=== PATIENT | male | born 1950 | race African-American/Black ===

== ENCOUNTER → 2016-08-07 | Outpatient (CLI) | payer MEDICARE | LOC: RAD 09:18 | PROVIDERS: ATTEND Family Medicine | DX: R91.1 Solitary pulmonary nodule (principal) | CPT/HCPCS: 71260 ==

== ENCOUNTER → 2016-09-15 | Outpatient (CLI) | payer MEDICARE | LOC: RAD 16:40 | PROVIDERS: ATTEND Nurse Practitioner Adult Health | DX: R91.1 Solitary pulmonary nodule (principal) | CPT/HCPCS: 78814; A9552 ==

== ENCOUNTER → 2016-10-02 | Day surgery (SDC) | payer MEDICARE | LOC: RAD 12:18 | PROVIDERS: ATTEND Family Medicine | PROC: 07B63ZX Excision of Left Axillary Lymphatic, Percutaneous Approach, Diagnostic (ICD-10-PCS; principal; 2016-10-02) | DX: R93.8 Abnormal findings on diagnostic imaging of other specified body structures (principal); R59.0 Localized enlarged lymph nodes | CPT/HCPCS: 38505; 76942; 88305 ==

== ENCOUNTER → 2017-01-30 | Outpatient (CLI) | payer MEDICARE ==
--- NOTE | 2017-01-30 11:43 | RADIOLOGY REPORT (SQ) ---
EXAM DESCRIPTION: U/S EXTREMITY NONVASCULAR LTD COMPLETED DATE/TIME: 01/30/2017 9:30 am REASON FOR STUDY: LOCALIZED ENLARGED LYMPH NODES <LEFT AXILLARY> (R59.0) R59.0 LOCALIZED ENLARGED L YMPH NODES COMPARISON: Ultrasound-guided axillary lymph node biopsy 10/02/2016 PET-CT 09/15/2016 CT chest 08/07/2016 TECHNIQUE: Ultrasound of the left axilla was performed LIMITATIONS: None. FINDINGS: In the left axilla, a previously biopsied lymph node is present with biopsy clip artifact. This lymph node is similar compared to biopsy imaging from 10/02/2016, 2.5 cm x 1.4 cm x 0.8 cm in si ze. IMPRESSION: Stable left axillary lymph node, previously biopsied TECHNICAL DOCUMENTATION: JOB ID: [id number] [employer]- All Rights Reserved
== END ==
LOC: RAD 08:38
PROVIDERS: ATTEND Surgery
DX: R59.0 Localized enlarged lymph nodes (principal)
CPT/HCPCS: 76882

== ENCOUNTER → 2017-08-04 | Outpatient (CLI) | payer MEDICARE ==
--- NOTE | 2017-08-04 10:04 | RADIOLOGY REPORT (SQ) ---
EXAM DESCRIPTION: U/S EXTREMITY NONVASCULAR LTD COMPLETED DATE/TIME: 08/04/2017 9:33 am REASON FOR STUDY: ENLARGED LYMPH NODES R59.0 LOCALIZED ENLARGED LYMPH NODES COMPARISON: 01/30/2017 TECHNIQUE: Dynamic and static grayscale images acquired of the localized site of clinical concern an d recorded on PACS. Additional selected color Doppler and spectral images recorded. SITE OF CONCERN: Left axilla LIMITATIONS: None. FINDINGS: SKIN AND SUBCUTANEOUS TISSUES: Previously biopsied lymph node is again noted. Stable to s lightly smaller in size. Now measures 1.6 x 1.2 x 1 cm. DEEP SOFT TISSUES/MUSCLES: No masses. No fluid collections. No edema. VASCULAR: No increased or decreased vascularity. No occlusions. OTHER: No other significant finding. IMPRESSION: Stable biopsied lymph node left axilla. TECHNICAL DOCUMENTATION: JOB ID: [id number] [employer]- All Rights Reserved
== END ==
LOC: RAD 08:52
PROVIDERS: ATTEND Surgery
DX: R59.0 Localized enlarged lymph nodes (principal)
CPT/HCPCS: 76882

== ENCOUNTER → 2017-09-22 | Outpatient (CLI) | payer MEDICARE ==
--- NOTE | 2017-09-22 16:53 | RADIOLOGY REPORT (SQ) ---
EXAM DESCRIPTION: KNEE LEFT 2 VIEWS COMPLETED DATE/TIME: 09/22/2017 11:14 am REASON FOR STUDY: PAIN IN LEFT KNEE M25.562 PAIN IN LEFT KNEE COMPARISON: Left knee plain films 09/28/2007 Left knee MRI 10/10/2010 NUMBER OF VIEWS: Two views. TECHNIQUE: AP and lateral radiographic images acquired of the left knee. LIMITATIONS: None. FINDINGS: MINERALIZATION: Normal. BONES: Total knee replacement with patellar resurfacing. Subtle lucency along the medial tibial plat eau between the bone and prosthesis, question loosening. No [place] river bony fracture JOINT: No effusion. SOFT TISSUES: No soft tissue swelling. No radio-opaque foreign body. OTHER: Left total knee replacement with patellar resurfacing IMPRESSION: Subtle lucency between the medial tibial plateau and prosthesis, question loosening of t he prosthesis. TECHNICAL DOCUMENTATION: JOB ID: [id number] [employer]- All Rights Reserved Reading location - IP/workstation name: [email or web address]
== END ==
LOC: OD 11:02
PROVIDERS: ATTEND Physician Assistant
DX: M25.562 Pain in left knee (principal); Z96.652 Presence of left artificial knee joint

== ENCOUNTER → 2018-04-03 | Outpatient (CLI) | payer MEDICARE ==
--- NOTE | 2018-04-03 12:43 | RADIOLOGY REPORT (SQ) ---
EXAM DESCRIPTION: HAND LEFT 3 VIEWS COMPLETED DATE/TIME: 04/03/2018 12:25 pm REASON FOR STUDY: OTHER SPECIFIED SOFT TISSUE DISORDERS M79.89 OTHER SPECIFIED SOFT TISSUE DISORDER S COMPARISON: 01/30/2016. EXAM PARAMETERS: NUMBER OF VIEWS: Three views. TECHNIQUE: AP, lateral and oblique radiographic images acquired of the left hand. LIMITATIONS: None. FINDINGS: MINERALIZATION: Normal. BONES: No acute fracture or dislocation. No worrisome bone lesions. JOINTS: No effusions. SOFT TISSUES: No soft tissue swelling. Punctate radiopaque density in the soft tissues adjacent to t he 2nd and 3rd metacarpal. OTHER: No other significant finding. IMPRESSION: PUNCTATE RADIOPAQUE DENSITY IN THE SOFT TISSUES ADJACENT TO THE 2ND AND 3RD METACARPAL. THIS MAY BE A TINY FOREIGN BODY OR FOCAL CALCIFICATION. NO CHANGE FROM THE PRIOR STUDY. NO OTHER S IGNIFICANT FINDINGS. TECHNICAL DOCUMENTATION: JOB ID: [id number] [employer]- All Rights Reserved Reading location - IP/workstation name: [email or web address]
--- NOTE | 2018-04-03 12:44 | RADIOLOGY REPORT (SQ) ---
EXAM DESCRIPTION: WRIST LEFT 3 VIEWS COMPLETED DATE/TIME: 04/03/2018 12:26 pm REASON FOR STUDY: OTHER SPECIFIED SOFT TISSUE DISORDERS M79.89 OTHER SPECIFIED SOFT TISSUE DISORDER S COMPARISON: 01/30/2016. NUMBER OF VIEWS: Three views. TECHNIQUE: AP, lateral, and oblique radiographic images acquired of the left wrist. LIMITATIONS: None. FINDINGS: MINERALIZATION: Normal. BONES: No acute fracture or dislocation. Marked joint space narrowing in the radiocarpal space with marked sclerosis and osteophytes. Small osseous densities adjacent to the ulnar styloid. No worriso me bone lesions. Normal alignment. SOFT TISSUES: No soft tissue swelling. No foreign body. OTHER: No other significant finding. IMPRESSION: CHRONIC DEGENERATIVE CHANGES IN THE RADIOCARPAL SPACE. NO ACUTE FINDINGS. TECHNICAL DOCUMENTATION: JOB ID: [id number] [employer]- All Rights Reserved Reading location - IP/workstation name: [email or web address]
== END ==
LOC: OD 11:33
PROVIDERS: ATTEND Family Medicine
DX: M79.89 Other specified soft tissue disorders (principal)

== ENCOUNTER → 2018-05-18 | Outpatient (CLI) | payer MEDICARE ==
--- NOTE | 2018-05-18 13:08 | RADIOLOGY REPORT (SQ) ---
EXAM DESCRIPTION: U/S RETROPERITON (RENAL/AORTA) COMPLETED DATE/TIME: 05/18/2018 10:45 am REASON FOR STUDY: ABN KIDNEY FUNCTION (R94.4) R94.4 ABNORMAL RESULTS OF KIDNEY FUNCTION STUDIES COMPARISON: None. TECHNIQUE: Dynamic and static grayscale images acquired of the kidneys and bladder and recorded on P ACS. Additional selected color Doppler and spectral images recorded. LIMITATIONS: None. FINDINGS: RIGHT KIDNEY: Normal size. Normal echogenicity. No solid or suspicious masses. No hydronep hrosis. No calcifications. LEFT KIDNEY: Normal size. Normal echogenicity. 3.5 cm cortical cyst. No solid or suspicious masses . No hydronephrosis. No calcifications. BLADDER: No masses. OTHER FINDINGS: No other significant finding. IMPRESSION: CORTICAL CYST IN THE LEFT KIDNEY. OTHERWISE UNREMARKABLE RENAL AND BLADDER ULTRASOUND. NO HYDRONEPHROSIS. TECHNICAL DOCUMENTATION: JOB ID: [id number]- All Rights Reserved Reading location - IP/workstation name: [email or web address]
== END ==
LOC: RAD 09:39
PROVIDERS: ATTEND Family Medicine
DX: R94.4 Abnormal results of kidney function studies (principal)
CPT/HCPCS: 76770

== ENCOUNTER 2018-10-27 19:53 | Emergency (ER) | payer MEDICARE ==
[2018-10-27] MEDS ORDERED: OXYCODONE-ACETAMINOPHEN 5-325 MG TABLET PO ONE (20:11)
[2018-10-27] MEDS ORDERED: METHOCARBAMOL 500 MG TABLET PO ONE (20:12)
[2018-10-27] MEDS ORDERED: KETOROLAC TROMETHAMINE INJ/PF 30 MG/1 ML SDV IM ONE (20:12)
--- NOTE | 2018-10-27 20:12 | ER Document Report ---
ED Neck/Back Problem - General Chief Complaint: Stiff Neck Stated Complaint: NECK PAIN Time Seen by Provider: 10/27/18 20:11 Primary Care Provider: DANA PLUNKETT MD [Primary Care Provider] - Follow up tomorrow Mode of Arrival: Ambulatory Information source: Patient Notes: 68-year-old male presented to ED for complaint of stiff neck on the right side. He states he has had multiple times in the past and the doctor usually gives him some muscle relaxers and it is relieved. He states it is been a while before he since he has had it last but his states his only been a couple months ago. Patient is alert oriented respirations regular and unlabored speaking in full sentences walks with a even steady gait. He states he does not have a left lung it was removed due to an infection. He also has a left knee replacement high blood pressure high cholesterol. TRAVEL OUTSIDE OF THE [place] IN LAST 30 DAYS: No - HPI Patient complains to provider of: Pain, Neck Onset: Yesterday Onset: Chronic Timing: Still present Quality of pain: Sharp Pain Level: 5 Recent injury: No Associated symptoms: Like prior neck/back pain Exacerbated by: Movement of neck - Muscle spasm Relieved by: Nothing Similar symptoms previously: Yes Recently seen / treated by doctor: Yes - Related Data Allergies/Adverse Reactions: No Known Allergies Allergy (Verified 10/27/18 19:54) Past Medical History - General Information source: Patient - Social History Smoking Status: Former Smoker Frequency of alcohol use: None Drug Abuse: None Lives with: Family Family History: Reviewed & Not Pertinent Patient has suicidal ideation: No Patient has homicidal ideation: No - Past Medical History Cardiac Medical History: Reports: Hx Hypercholesterolemia, Hx Hypertension Pulmonary Medical History: Reports: Hx Asthma, Hx COPD, Hx Pneumonia EENT Medical History: Reports: None Neurological Medical History: Reports: None Endocrine Medical History: Reports: None Renal/ Medical History: Reports: None Malignancy Medical History: Reports None GI Medical History: Reports: None Musculoskeletal Medical History: Reports Hx Arthritis - Osteoarthritis, Reports Hx Musculoskeletal Deformity Skin Medical History: Reports None Psychiatric Medical History: Reports: None Traumatic Medical History: Reports: Hx Fractures - Wrist Infectious Medical History: Reports: None Past Surgical History: Reports: Hx Orthopedic Surgery - Left Knee Replacement, Other - Uvula Resection - Snoring. Left Upper lobectomy - 2 Fungal Infection - Immunizations Immunizations up to date: No Hx Diphtheria, Pertussis, Tetanus Vaccination: No Hx Pneumococcal Vaccination: 05/28/15 Review of Systems - Review of Systems Constitutional: No symptoms reported EENT: No symptoms reported Cardiovascular: No symptoms reported Respiratory: No symptoms reported Gastrointestinal: No symptoms reported Genitourinary: No symptoms reported Male Genitourinary: No symptoms reported Musculoskeletal: Muscle pain, Muscle stiffness, Neck pain Skin: No symptoms reported Hematologic/Lymphatic: No symptoms reported Neurological/Psychological: No symptoms reported -: Yes All other systems reviewed and negative Physical Exam - Vital signs Vitals: Temp Pulse Resp BP Pulse Ox 98.0 F 86 16 158/84 H 100 10/27/18 20:04 10/27/18 20:04 10/27/18 20:04 10/27/18 20:04 10/27/18 20:04 Interpretation: Normal - General General appearance: Appears well, Alert - HEENT Head: Normocephalic, Atraumatic Eyes: Normal Pupils: PERRL - Respiratory Respiratory status: No respiratory distress Chest status: Nontender Breath sounds: Normal Chest palpation: Normal - Cardiovascular Rhythm: Regular Heart sounds: Normal auscultation Murmur: No - Abdominal Inspection: Normal Distension: No distension Bowel sounds: Normal Tenderness: Nontender Organomegaly: No organomegaly - Back Back: Normal, Tender - Right neck muscle presents - Extremities General upper extremity: Normal inspection, Nontender, Normal color, Normal ROM, Normal temperature General lower extremity: Normal inspection, Nontender, Normal color, Normal ROM, Normal temperature, Normal weight bearing. No: Shereen's sign - Neurological Neuro grossly intact: Yes Cognition: Normal Orientation: AAOx4 Debi Coma Scale Eye Opening: Spontaneous Norris Coma Scale Verbal: Oriented Debi Coma Scale Motor: Obeys Commands Debi Coma Scale Total: 15 Speech: Normal Motor strength normal: LUE, RUE, LLE, RLE Sensory: Normal - Psychological Associated symptoms: Normal affect, Normal mood - Skin Skin Temperature: Warm Skin Moisture: Dry Skin Color: Normal Course - Re-evaluation Re-evalutation: 10/27/18 22:02 Patient received relief from his torticollis was able to move his neck freely. Patient was discharged home with prescription for Robaxin and instructed to follow-up with orthopedics or his primary care doctor tomorrow. Patient was given instructions on ice and warm packs. Patient and verbalized understanding and agreement with treatment plan and patient was discharged home. - Vital Signs Vital signs: Temp Pulse Resp BP Pulse Ox 98.0 F 81 16 149/82 H 97 10/27/18 20:04 10/27/18 21:03 10/27/18 21:03 10/27/18 21:03 10/27/18 21:03 Discharge - Discharge Clinical Impression: Right torticollis Condition: Stable Disposition: HOME, SELF-CARE Additional Instructions: Torticollis You have torticollis, often called "wry neck." This is due to spasm of neck muscles -- locking the neck into a crooked position. Many different problems can lead to torticollis, such as a minor injury, sleeping with tension on the neck, or inflammation in the glands of the neck. Torticollis is usually treated with heat to relax the neck muscles, but the physician may recommend cold packs if a minor injury is suspected as the cause. Muscle relaxing and antiinflammatory medicine are often prescribed. You may need a neck collar to support your head. Improvement is usually rapid. Usually, the neck can be moved fully within two days, although some pain may persist for a few weeks. Call the doctor at once if you worsen, or if you develop high fever, severe headache, numbness or weakness, or other alarming symptoms. USE OF TYLENOL (ACETAMINOPHEN): Acetaminophen may be taken for pain relief or fever control. It's much safer than aspirin, offering a wider range of "safe" dosages. It is safe during . Some brand names are Tylenol, Panadol, Datril, Anacin 3, Tempra, and Liquiprin. Acetaminophen can be repeated every four hours. The following are maximum recommended dosages: WEIGHT Dose Drops Elixir Chew able(80mg) (LBS.) drprs=droppers tsp=teaspoon 6 40 mg 0.4 ml (1/2) 6-11 80 mg 0.8 ml (full) tsp 1 tab 12-16 120 mg 1 1/2 drprs 3/4 tsp 1 1/2 tabs 17-23 160 mg 2 drprs 1 tsp 2 tabs 24-30 240 mg 3 drprs 1 1/2 tsp 3 tabs 30-35 320 mg 2 tsp 4 tabs 36-41 360 mg 2 1/4 tsp 4 1/2 tabs 42-47 400 mg 2 1/2 tsp 5 tabs 48-53 480 mg 3 tsp 6 tabs 54-59 520 mg 3 1/4 tsp 6 1/2 tabs 60-64 560 mg 3 1/2 tsp 7 tabs 65-70 600 mg 3 3/4 tsp 7 1/2 tabs 71-76 640 mg 4 tsp 8 tabs 77-82 720 mg 4 1/2 tsp 9 tabs 83-88 800 mg 5 tsp 10 tabs >89 pounds or adults 650 mg to 900 mg Acetaminophen can be repeated every four hours. Maximum dose not to exceed 4000 mg a day. These maximum recommended dosages are slightly higher than the dosages written on the product container, but these dosages are very safe and below the toxic dosage for acetaminophen. ICE PACKS: Apply ice packs frequently against the painful area. Many different schedules are recommended, such as "20 minutes on, 20 minutes off" or "one hour ice, two hours rest." If you need to work, you may need to go longer between ice treatments. You should plan to have the area ice packed AT LEAST one fourth of the time. The ice should be applied over the wrap, tape, or splint, or over a layer of cloth -- not directly against the skin. Some ice bags have a built-in cloth and can be put directly on the skin. WARM PACKS: After approximately two days, apply gentle heat (such as a heating pad or hot water bottle) for about 20 to 30 minutes about every two hours -- at least four times daily. Warmth and elevation will help you make a more rapid recovery, and will ease the pain considerably. Do not use HOT heat, and never apply heat for longer than 30 minutes. The continuous heat can invisibly damage skin and muscles -- even when no burn is seen on the surface. Damaged muscles can make you MORE sore. MUSCLE RELAXERS: Muscle relaxing medications are usually prescribed for acute muscle spasm or injury to the neck and back. They are often combined with antiinflammatory pain medication for increased relief. You may stop the muscle relaxer when the pain and stiffness have improved. Start the medication again if spasms recur. Muscle relaxers may cause drowsiness, especially with the first dose. Do not operate machinery or drive while under the effects of the medication. Most muscle relaxers last up to 24 hours. Do not combine the medication with alcohol. ORAL NARCOTIC MEDICATION: You have been given a percocet for pain control. This medication is a narcotic. It's best taken with food, as nausea can result if taken on an empty stomach. Don't operate machinery or drive within six hours of taking this medication. Do not combine this medicine with alcohol, or with any medication which can cause sedation (such as cold tablets or sleeping pills) unless you get permission from the physician. Narcotics tend to cause constipation. If possible, drink plenty of fluids and eat a diet high in fiber and fruits. Toradol Injection You have been given an injection of ketorolac tromethamine (Toradol). This is an excellent, safe drug for pain control. It also has potent antiinflammatory action. You should have significant pain relief within about one hour. Toradol is not addicting and is non-sedating. It does not interfere with driving or work. Call or return if you develop itching, hives, shortness of breath, or rash. FOLLOW-UP CARE: If you have been referred to a physician for follow-up care, call the physicians office for an appointment as you were instructed or within the next two days. If you experience worsening or a significant change in your symptoms, notify the physician immediately or return to the Emergency Department at any time for re-evaluation. Prescriptions: Methocarbamol [Robaxin 500 mg Tablet] 500 mg PO BID #10 tablet Forms: Elevated Blood Pressure Referrals: DANA PLUNKETT MD [Primary Care Provider] - Follow up tomorrow
[2018-10-27 21:04] VITALS: BP 149/82
== END 2018-10-27 21:04 | disposition home or self-care (01) ==
LOC: ER 19:53
DX: M43.6 Torticollis (principal); E78.00 Pure hypercholesterolemia, unspecified; I10 Essential (primary) hypertension; J44.9 Chronic obstructive pulmonary disease, unspecified; Z96.652 Presence of left artificial knee joint
CPT/HCPCS: 99283; 96372; A9270 ×2; J1885

== ENCOUNTER → 2018-10-29 | Outpatient (CLI) | payer MEDICARE ==
--- NOTE | 2018-10-29 13:25 | RADIOLOGY REPORT (SQ) ---
EXAM DESCRIPTION: C SP 4 OR 5 VIEWS COMPLETED DATE/TIME: 10/29/2018 11:08 am REASON FOR STUDY: CERVICALGIA M54.2 CERVICALGIA COMPARISON: None. NUMBER OF VIEWS: Five views. TECHNIQUE: AP, lateral, obliques and odontoid radiographic images acquired of the cervical spine. LIMITATIONS: None. FINDINGS: MINERALIZATION: Normal. ALIGNMENT: Loss of the normal lordotic curvature likely secondary to muscle spasm. Anatomic. VERTEBRAE: Vertebral bodies of normal height. DISCS: Multilevel moderate to moderate severe disc disease from C3-4 through C7-T1 with mild adjacen t endplate sclerosis. Mildly prominent anterior osteophytes. FORAMINA: Multilevel mild to moderate foraminal narrowing. Small posterior osteophytes encroach on the foramina on the left at C5-C6 and C6-C7. On the right at C5-C6. LATERAL AND POSTERIOR ELEMENTS: Multilevel mild to moderate facet arthrosis. The lateral masses and spinous processes without significant findings. HARDWARE: None in the spine. SOFT TISSUES: No masses or calcifications. Lung apices clear. OTHER: No other significant finding. IMPRESSION: 1. Degenerative cervical spondylosis and multilevel moderate severe degenerative disc d isease. 2. Multilevel bilateral foraminal narrowing. 3. Loss of the normal lordotic curvature likely secondary to muscle spasm. 4. No acute osseous findings. TECHNICAL DOCUMENTATION: JOB ID: [id number]- All Rights Reserved Reading location - IP/workstation name: [email or web address]
== END ==
LOC: OD 10:41
PROVIDERS: ATTEND Family Medicine
DX: M54.2 Cervicalgia (principal)
CPT/HCPCS: 72050

== ENCOUNTER → 2018-11-05 | Outpatient (CLI) | payer MEDICARE ==
--- NOTE | 2018-11-05 11:24 | RADIOLOGY REPORT (SQ) ---
EXAM DESCRIPTION: MRI CERVICAL SPINE WITHOUT COMPLETED DATE/TIME: 11/05/2018 7:48 am REASON FOR STUDY: CERVICALGIA (M54.2) M54.2 CERVICALGIA COMPARISON: None. TECHNIQUE: Sagittal and Axial imaging includes T1, T2, STIR and gradient echo sequences. LIMITATIONS: Motion. FINDINGS: ALIGNMENT: Straightening of the lordotic curve. VERTEBRAE: Intact. BONE MARROW: No significant marrow abnormality. DISCS: Desiccation multiple levels. HARDWARE: None in the spine. CORD AND BASE OF BRAIN: Normal in size and signal intensity. SOFT TISSUES: No soft tissue masses. C1-C2: No significant spinal stenosis. C2-C3: Mild spinal stenosis due disc osteophyte complex. Moderate neural foraminal narrowing bilater ally. C3-C4: Mild -moderate spinal stenosis. Moderate right and severe left neural foraminal narrowing. C4-C5: Moderate spinal stenosis. Moderate left and severe right neural foraminal narrowing. C5-C6: Mild -moderate spinal stenosis. Severe neural foraminal narrowing bilaterally. C6-C7: Mild -moderate spinal stenosis. Severe neural foraminal narrowing bilaterally. C7-T1: Mild spinal stenosis. UPPER THORACIC: Mild spinal stenosis T1-2. OTHER: No other significant finding. IMPRESSION: Spinal stenosis at multiple levels, most severe at C4- 5. Neural foraminal stenosis. TECHNICAL DOCUMENTATION: JOB ID: [id number] [employer]- All Rights Reserved Reading location - IP/workstation name: [email or web address]
== END ==
LOC: RAD 06:50
PROVIDERS: ATTEND Family Medicine
DX: M54.2 Cervicalgia (principal)
CPT/HCPCS: 72141

== ENCOUNTER → 2019-10-25 | Outpatient (CLI) | payer MEDICARE ==
--- NOTE | 2019-10-25 13:09 | RADIOLOGY REPORT (SQ) ---
EXAM DESCRIPTION: CT ABD/PELVIS NO ORAL OR IV IMAGES COMPLETED DATE/TIME: 10/25/2019 12:54 pm REASON FOR STUDY: R31.9 HEMATURIA R31.9 HEMATURIA, UNSPECIFIED COMPARISON: None. TECHNIQUE: CT scan of the abdomen and pelvis performed without intravenous or oral contrast. Images reviewed with lung, soft tissue, and bone windows. Reconstructed coronal and sagittal MPR images revi ewed. All images stored on PACS. All CT scanners at this facility use dose modulation, iterative reconstruction, and/or weight based d osing when appropriate to reduce radiation dose to as low as reasonably achievable (ALARA). [facility]: Dose Right [facility]: CareDose [facility]: Dose Right [facility]: Teradose 4D [facility]: Smart Minbox RADIATION DOSE: CT Rad equipment meets quality standard of care and radiation dose reduction techniq ues were employed. CTDIvol: 7.6 mGy. DLP: 393 mGy-cm.mGy. LIMITATIONS: None. FINDINGS: LOWER CHEST: No significant findings. No nodules or infiltrates. NON-CONTRASTED LIVER, SPLEEN, ADRENALS: Evaluation limited by lack of IV contrast. No identified sign ificant masses. PANCREAS: No masses. No peripancreatic inflammatory changes. GALLBLADDER: No identified stones by CT criteria. No inflammatory changes to suggest cholecystitis. RIGHT KIDNEY AND URETER: 3.5 cm upper pole cyst. No suspicious masses. Assessment limited by lack of IV contrast. No significant calcifications. No hydronephrosis or hydroureter. LEFT KIDNEY AND URETER: No suspicious masses. Assessment limited by lack of IV contrast. No signifi cant calcifications. No hydronephrosis or hydroureter. AORTA AND RETROPERITONEUM: No aneurysm. No retroperitoneal masses or adenopathy. BOWEL AND PERITONEAL CAVITY: Diffuse diverticulosis. No obvious masses or inflammatory changes. No f ree fluid. APPENDIX: Normal. PELVIS, BLADDER, AND ABDOMINAL WALL:No abnormal masses. No free fluid. Bladder normal. BONES: No significant findings. OTHER: No other significant finding. IMPRESSION: No evidence of urinary tract stones or hydronephrosis. Diverticulosis without evidence of diverticulitis. COMMENT: Quality ID # [id number]: Final reports with documentation of one or more dose reduction techniques (e.g., Automated exposure control, adjustment of the mA and/or kV according to patient size, use of iterative reconstruction technique) TECHNICAL DOCUMENTATION: JOB ID: [id number] [employer]- All Rights Reserved Reading location - IP/workstation name: [email or web address]
== END ==
LOC: RAD 12:44
PROVIDERS: ATTEND Family Medicine
DX: R31.9 Hematuria, unspecified (principal)
CPT/HCPCS: 74176